=== PATIENT | male | born 1955 | race Hispanic/Latino ===

== ENCOUNTER 2019-07-05 07:17 | Day surgery (SDC) | payer MEDICARE ==
[2019-07-03 11:55] VITALS: BP 154/72
[2019-07-03 12:12] LABS: BASOPHILS % (AUTO) 3.1 % (0.0-5.0); EOSINOPHILS % (AUTO) 6.9 % (0.0-8.0); HEMATOCRIT 40.4 % (42-54); MEAN CORPUSCULAR HGB CONC 33.8 g/dL (32.0-36.0); MONOCYTES % (AUTO) 12.6 % (3.0-13.0); NEUTROPHILS % (AUTO) 47.4 % (40.0-77.0); NUCLEATED RED BLOOD CELLS 0.1 % (0.0-0.19); PLATELET COUNT (AUTO) 182 K/uL (130-400); RED BLOOD CELL COUNT(AUTO) 4.54 MIL/uL (4.50-6.20); RED CELL DISTRIBUTION WIDTH 15.2 % (11.0-15.5); WHITE BLOOD COUNT (AUTO) 6.1 K/uL (4.8-10.8)
[2019-07-03 12:13] LABS: APPEARANCE,URINE Clear (CLEAR); BILIRUBIN,URINE Negative (NEGATIVE); COLOR,URINE Yellow (YELLOW); GLUCOSE, URINE (UA) TRACE mg/dL (NEGATIVE); KETONES,URINE Negative (NEGATIVE); LEUKOCYTE ESTERASE ,URINE Negative (NEGATIVE); NITRATE,URINE Negative (NEGATIVE); OCCULT BLOOD,URINE Negative (NEGATIVE); PROTEIN,URINE Negative (NEGATIVE); UROBILINOGEN,URINE 0.2 mg/dL (0.2-1.0)
[2019-07-03 12:24] LABS: CREATININE 1.3 mg/dL (0.5-1.5); POTASSIUM 4.9 mmol/L (3.5-5.1)
[2019-07-03 12:25] LABS: INR 1.06 (0.85-1.15); PARTIAL THROMBOPLASTIN TIME 28.5 SEC (26.3-35.5); PROTHROMBIN TIME 11.1 SEC (9.6-11.6)
[2019-07-03 12:31] LABS: BACTERIA,URINE Rare /HPF (None Seen); RBC,URINE 0-1 /HPF (0-1); SQUAMOUS EPITHELIAL CELL,UR Rare /HPF (0-2); WBC,URINE 0-1 /HPF (0-1)
--- NOTE | 2019-07-04 10:19 | NUR ---
labs abnormal bun crea reported to Silvana Montgomery [employer]OPER[employer] SUPERVISOR, no further orders given at this time, ok to proceed with procedure
[~2019-07-05] VITALS: Ht 172.7 cm; Wt 85.2 kg
[2019-07-05] VITALS (10 sets, daily range): BP systolic 113–137; BP diastolic 52–70
[~2019-07-05 07:17] MED LIST: ASPI-1181 PO; ATOR40TA71 PO; CARV12.511 PO; CLOP75TA14 PO; DOCU250C14 PO; GABA-531 PO; INSU100I35 SQ; ISOS30TA6 PO; LEVO50TA11 PO; LISI-613 PO; MAGNESIUM PO; NITR0.4T50 SL; PANT40TA25 PO; SODIUM CHLORIDE 0.9% 500ML 500 ML IV SCH; VITAMIN A PO
--- NOTE | 2019-07-05 07:38 | NUR ---
PATIENT ARRIVED PATIENT ARRIVED TO DAY PATIENT BY HIMSELF. SISTER (DEXTER) WAITING IN LOBBY. PATIENT AAOX3, RESPIRATIONS UNLABORED, VITAL SIGNS STABLE. PATIENT DENIES ANY PAIN AT THIS TIME. PROCEDURE VERIFIED AND EXPLAINED TO PATIENT, PATIENT VERBALIZED UNDERSTANDING. HOSPITAL ROUTINE EXPLAINED TO PATIENT. SDIERAILS UPX2, CALL WEISS IN REACH AND BED IN LOWEST POSITION.
--- NOTE | 2019-07-05 08:20 | NUR ---
PATIENT'S SISTER BROUGHT INTO ROOM AND EXPLAINED TO WAIT IN ROOM WHILE PATIENT IS IN PROCEDURE SO THAT SHE MAY SPEAK WITH DR REID AFTER PROCEDURE IS COMPLETE.
[2019-07-05] MEDS ORDERED: SODIUM CHLORIDE 0.9% 1000ML 1,000 ML IV ONE (08:56)
[2019-07-05] MEDS ORDERED: IOHEXOL-350 50ML VIAL IV ONE (09:22)
[2019-07-05] MEDS ORDERED: LIDOCAINE HCL 2% 20ML ONE (09:22)
[2019-07-05] MEDS ORDERED: NITROGLYCERIN 5 MG/ML 10 ML VIAL IV ONE (09:22)
[2019-07-05] MEDS ORDERED: BIVALIRUDIN 250 MG/VIAL IV ONE (09:22)
[2019-07-05] MEDS ORDERED: IOHEXOL 350 MG/ML 100ML INFUS..BTL IV ONE (09:22)
--- NOTE | 2019-07-05 09:30 | NUR ---
PATIENT TRANSFERRED PATIENT TAKEN TO LIGHTING ADVISER VIA BED BY JANETT GREEN AND JANETT SCHROEDER. PATIENT;S SISTER INSTRUCTED TO WAIT IN ROOM SO THAT SHE CAN SPEAK WITH DR REID AFTER PROCEDURE IS COMPLETE.
[2019-07-05] MEDS ORDERED: NITROGLYCERIN 4.1 GM SPRAY TL ONE (10:36)
[2019-07-05] MEDS ORDERED: SODIUM CHLORIDE 0.9% 1000ML 1,000 ML IV SCH (11:34)
[2019-07-05] MEDS ORDERED: ACETAMINOPHEN-CODEINE 300/30MG TAB PO PRN ×2 (11:45)
--- NOTE | 2019-07-05 14:25 | NUR ---
HANDOFF REPORT HANDOFF COMMUNICATION GIVEN TO JANETT FLETCHER USING SBAR. ALL QUESTIONS/CONCERNS REGARDING PATIENT CONTINUATION OF CARE ADDRESSED.
--- NOTE | 2019-07-05 14:29 | NUR ---
resume care report received from Jay De Jesus RN, took over care of patient, pt awake and alert in bed,no distress noted. right groin dressing dry and intact, perclose .no hematoma or bleeding noted
--- NOTE | 2019-07-05 16:00 | NUR ---
dc dc instructions given to patient /pt spouse with rx, instructed on new med regimen, increase carvedilol & isosorbide doses increased, both verbalized understanding. Instructed to f/u with dr. jaspreet wilcox and also to f/u ct scan chest on 07-10-19, verbalized understanding.
--- NOTE | 2019-07-05 16:35 | NUR ---
dc pt dc home via [place], no distress noted , accompanied by sister. patient denies any pain or discomforts.
== END 2019-07-05 16:35 | disposition home or self-care (01) ==
LOC: DAH 07:17
PROVIDERS: ATTEND Internal Medicine Cardiovascular Disease
DX: I25.118 Atherosclerotic heart disease of native coronary artery with other forms of angina pectoris (principal); I10 Essential (primary) hypertension; E11.9 Type 2 diabetes mellitus without complications; E03.9 Hypothyroidism, unspecified; E78.5 Hyperlipidemia, unspecified; Z79.82 Long term (current) use of aspirin; Z79.899 Other long term (current) drug therapy; Z98.890 Other specified postprocedural states; Z87.891 Personal history of nicotine dependence; Z79.01 Long term (current) use of anticoagulants; Z72.89 Other problems related to lifestyle; Z95.5 Presence of coronary angioplasty implant and graft; Z79.4 Long term (current) use of insulin; Z82.49 Family history of ischemic heart disease and other diseases of the circulatory system; Z83.3 Family history of diabetes mellitus
CPT/HCPCS: 36415; 71045; 80048; 81001; 82948 ×3; 85025; 85610; 85730; 93005; 93459; A4216; A4221; A4222; A4223 ×3; C1760; C1894; J1644; J3490 ×2; J7030; J7040; Q9965 ×2; Q9967 ×2; J0583

== ENCOUNTER → 2019-07-10 | Outpatient (CLI) | payer MEDICARE ==
[~2019-07-10] MED LIST changes: -CARV12.511 PO; +IOHEXOL-350 50ML VIAL IV ONE; -ISOS30TA6 PO; -SODIUM CHLORIDE 0.9% 500ML 500 ML IV SCH
== END | disposition home or self-care (01) ==
LOC: RAH 12:29
PROVIDERS: ATTEND Internal Medicine Cardiovascular Disease
DX: J44.9 Chronic obstructive pulmonary disease, unspecified (principal); Z95.1 Presence of aortocoronary bypass graft
CPT/HCPCS: 71270; Q9967

== ENCOUNTER 2019-09-16 06:26 | Day surgery (SDC) | payer MEDICARE ==
[2019-09-12 13:00] VITALS: BP 125/59
[2019-09-12 13:07] LABS: APPEARANCE,URINE Clear (CLEAR); BILIRUBIN,URINE Negative (NEGATIVE); COLOR,URINE Yellow (YELLOW); GLUCOSE, URINE (UA) 500 mg/dL (NEGATIVE); KETONES,URINE Negative (NEGATIVE); LEUKOCYTE ESTERASE ,URINE Negative (NEGATIVE); NITRATE,URINE Negative (NEGATIVE); OCCULT BLOOD,URINE Negative (NEGATIVE); PROTEIN,URINE Negative (NEGATIVE)
[2019-09-12 13:12] LABS: CREATININE 1.3 mg/dL (0.5-1.5); POTASSIUM 4.9 mmol/L (3.5-5.1)
[2019-09-12 13:19] LABS: INR 1.09 (0.85-1.15); PARTIAL THROMBOPLASTIN TIME 27.9 SEC (26.3-35.5); PROTHROMBIN TIME 11.4 SEC (9.6-11.6)
[2019-09-12 13:23] LABS: BACTERIA,URINE Rare /HPF (None Seen); RBC,URINE None Seen /HPF (0-1); SQUAMOUS EPITHELIAL CELL,UR Rare /HPF (0-2); WBC,URINE None Seen /HPF (0-1)
[2019-09-12 13:24] LABS: BASOPHILS % (AUTO) 0.1 % (0.0-5.0); EOSINOPHILS % (AUTO) 6.2 % (0.0-8.0); HEMATOCRIT 38.8 % (42-54); LYMPHOCYTES % (AUTO) 33.5 % (21.0-51.0); MEAN CORPUSCULAR HEMOGLOBIN 29.4 pg (27.0-33.0); MEAN CORPUSCULAR HGB CONC 33.5 g/dL (32.0-36.0); MEAN CORPUSCULAR VOLUME 87.8 fL (79-99); MONOCYTES % (AUTO) 12.5 % (3.0-13.0); NEUTROPHILS % (AUTO) 47.7 % (40.0-77.0); NUCLEATED RED BLOOD CELLS 0.1 % (0.0-0.19); PLATELET COUNT (AUTO) 176 K/uL (130-400); RED BLOOD CELL COUNT(AUTO) 4.42 MIL/uL (4.50-6.20); RED CELL DISTRIBUTION WIDTH 16.1 % (11.0-15.5); WHITE BLOOD COUNT (AUTO) 5.6 K/uL (4.8-10.8)
--- NOTE | 2019-09-13 10:23 | NUR ---
LABS INFORMED RADAH BALBUENA OF ABNORMAL BUN/CREA. STATES TO CALL PT AND HAVE PT HYDRATE PRIOR TO PROCEDURE.
--- NOTE | 2019-09-13 13:34 | NUR ---
HYDRATE CALLED PT TO INFORM OF DRINKING FLUIDS THROUGHOUT WEEKEND. NO ANSWER. INFORMED SISTER. SHE WILL INFORM HIM.
[~2019-09-16] VITALS: Ht 172.7 cm; Wt 86.9 kg
[2019-09-16] VITALS (9 sets, daily range): BP systolic 100–145; BP diastolic 53–70
[~2019-09-16 06:26] MED LIST changes: +CARV12.511 PO; -DOCU250C14 PO; -IOHEXOL-350 50ML VIAL IV ONE; +ISOS30TA6 PO; -MAGNESIUM PO; -NITR0.4T50 SL; -VITAMIN A PO
[2019-09-16] MEDS ORDERED: SODIUM CHLORIDE 0.9% 100 ML IV SCH (07:30)
[2019-09-16] MEDS ORDERED: IOHEXOL 350 MG/ML 100ML INFUS..BTL IV ONE (07:45)
[2019-09-16] MEDS ORDERED: NITROGLYCERIN 5 MG/ML 10 ML VIAL IV ONE (07:45)
[2019-09-16] MEDS ORDERED: BIVALIRUDIN 250 MG/VIAL IV ONE (07:45)
[2019-09-16] MEDS ORDERED: LIDOCAINE HCL 2% 20ML ONE (07:46)
[2019-09-16] MEDS ORDERED: SODIUM CHLORIDE 0.9% 1000ML 1,000 ML IV ONE (08:20)
[2019-09-16] MEDS ORDERED: MIDAZOLAM HCL 1 MG/ML 2ML VIAL ONE (08:39)
[2019-09-16] MEDS ORDERED: CLOPIDOGREL BISULFATE 300 MG TAB ONE (08:46)
[2019-09-16] MEDS ORDERED: DEXTROSE 50%-WATER 50 ML DISP.SYRIN IV PRN (09:30)
[2019-09-16] MEDS ORDERED: ONDANSETRON HCL 4 MG/2 ML VIAL IVP PRN (09:30)
[2019-09-16] MEDS ORDERED: SODIUM CHLORIDE 0.9% 10 ML VIAL IV SCH (09:30)
[2019-09-16] MEDS ORDERED: PANTOPRAZOLE SODIUM 40 MG TABLET.DR PO PRN (09:30)
[2019-09-16] MEDS ORDERED: LIDOCAINE HCL 2% VISCOUS 15 ML UDCUP ONE (09:40)
[2019-09-16] MEDS ORDERED: MAG HYDROX/AL HYDROX/SIMETH ES 30 ML SUSP UDCUP ONE (09:40)
[2019-09-16] MEDS ORDERED: INSULIN HUMULIN R 100 UNIT/ML 3ML SQ SCH (11:30)
[2019-09-16] MEDS ORDERED: INSULIN HUMULIN 70/30 100 UNIT/ML 3ML SQ SCH ×2 (12:00→21:00)
--- NOTE | 2019-09-16 12:45 | NUR ---
pt insulin due, pt request to not receive insulin at this time as scheduled, he stated that he will take when he gets home because he did not eat lunch tray. Will cont to monitor for s/s of hypoglycemia.
[2019-09-16] MEDS ORDERED: ATORVASTATIN CALCIUM 40 MG TABLET PO SCH (21:00)
[2019-09-16] MEDS ORDERED: LISINOPRIL 20 MG TABLET PO SCH (21:00)
[2019-09-16] MEDS ORDERED: CARVEDILOL 12.5 MG TABLET PO SCH (21:00)
[2019-09-17] MEDS ORDERED: LEVOTHYROXINE 50 MCG TABLET PO SCH (06:30)
[2019-09-17] MEDS ORDERED: INSULIN HUMULIN 70/30 100 UNIT/ML 3ML SQ SCH (07:30)
[2019-09-17] MEDS ORDERED: GABAPENTIN 300 MG CAPSULE PO SCH (09:00)
[2019-09-17] MEDS ORDERED: CLOPIDOGREL BISULFATE 75 MG TAB PO SCH (09:00)
[2019-09-17] MEDS ORDERED: ASPIRIN 81 MG EC TAB PO SCH (09:00)
[2019-09-17] MEDS ORDERED: ISOSORBIDE MONO 30MG TAB SR PO SCH (09:00)
== END 2019-09-16 14:03 | disposition home or self-care (01) ==
LOC: DAH 06:26
PROVIDERS: ATTEND Internal Medicine Cardiovascular Disease
DX: I25.810 Atherosclerosis of coronary artery bypass graft(s) without angina pectoris (principal); E78.5 Hyperlipidemia, unspecified; E03.9 Hypothyroidism, unspecified; I25.5 Ischemic cardiomyopathy; E11.9 Type 2 diabetes mellitus without complications; I10 Essential (primary) hypertension; Z95.1 Presence of aortocoronary bypass graft; Z79.82 Long term (current) use of aspirin; Z79.01 Long term (current) use of anticoagulants; Z79.4 Long term (current) use of insulin; Z79.899 Other long term (current) drug therapy
CPT/HCPCS: 36415; 71045; 80048; 81001; 82948; 85025; 85610; 85730; 93005; 93454; 99156; 99157; A4606; C1760; C1769; C1887; C1894; C9600; J0583; J1644; J2250; J3490; J7030; Q9967